=== PATIENT | male | born 1970 | race Asian ===

== ENCOUNTER 2024-03-11 21:49 | Emergency (ER) | payer BC ==
[~2024-03-11] VITALS: Ht 175.3 cm; Wt 63.0 kg
[2024-03-11 21:50] VITALS: TEMP 97.4
[2024-03-11] MEDS ORDERED: IOPAMIDOL 370 MG/ML 100 ML INFUS..BTL INJ ONE (22:45)
[2024-03-11] MEDS: Morphine 2mg Syringe 2 MG/ML SYR IV ONE (22:46)
[2024-03-11] MEDS: ONDANSETRON HCL INJ 2MG/ML 2ML 2 MG/ML VIAL IV STA (22:46)
[2024-03-11] MEDS: LABETALOL HCL 5 MG/ML 20ML VIAL IV STA (23:10)
[2024-03-11 23:49] VITALS: PULSE 89; RESP 24
[2024-03-11] MEDS ORDERED: ONDANSETRON ODT4 MG PO (23:51)
[2024-03-11] MEDS ORDERED: Morphine 2mg Syringe 2 MG/ML SYR ONE (23:58)
[2024-03-12 00:04] VITALS: BP 138/84; PULSE 84; RESP 18; TEMP 98; O2SAT 99
[2024-03-12] MEDS ORDERED: Morphine 4mg INJECTION 4 MG/ML INJ IV ONE (00:15)
== END 2024-03-12 00:04 | disposition other institution (70) ==
LOC: FSED 21:54
DX: R06.00 Dyspnea, unspecified (principal); I71.019 Dissection of thoracic aorta, unspecified; R94.31 Abnormal electrocardiogram [ECG] [EKG]
CPT/HCPCS: 71260; 74177; 80053; 84484; 85025; 99284; J2270; J2405; J3490; Q9967; 93005